=== PATIENT | female | born 1985 | race Caucasian/White ===

== ENCOUNTER 2018-03-18 20:46 | Emergency (ER) | payer SELFPAY ==
[2018-03-18] MEDS ORDERED: DEXAMETHASONE SOD PHOSPHATE 10MG/ML VIAL PO ONE (21:00)
[2018-03-18] MEDS ORDERED: AMOXICILLIN 500MG CAPSULE PO ONE (21:00)
[2018-03-18] MEDS ORDERED: ONDANSETRON 4 MG ODT TABLET SL ONE (21:02)
--- NOTE | 2018-03-18 21:05 | Emergency Department Record ---
History of Present Illness - General Chief Complaint: Headache Migraine Stated Complaint: HEADACHE SINUS CONGESTION,BODY ACHES Time Seen by Provider: 03/18/18 20:48 Source: Patient Mode of Arrival: Ambulatory Limitations: No limitations - History of Present Illness Initial Comments: 32 yo male presents with about three weeks of congestion of the sinuses, green drainage, sore throat and some intermittent fevers. No neck pain. No vomiting or diarrhea but she has had some nausea. MD Complaint: Headache, Other (sinus pressure and drainage) -: Week(s) (3) Onset Description: Gradual Location: Frontal Severity: Moderate Quality: Aching Consistency: Constant Improves With: Other Worsens With: None Context: Recent URI Associated Symptoms: Fever Other Symptoms: Cough Treatments Prior to Arrival: Acetaminophen - Related Data Previous Rx's Medication Instructions Recorded Amoxicillin 500Mg Capsule [Amoxil] 500 mg PO TID #30 tab 03/18/18 Ondansetron [Zofran Odt] 4 mg PO NOW #15 tab.rapdis 03/18/18 Allergies Allergy/AdvReac Type Severity Reaction Status Date / Time No Known Drug Allergies Allergy Verified 07/20/15 14:12 Review of Systems Constitutional: Reports: Chills, Fever, Malaise Eyes: Denies: Eye discharge, Eye pain, Photophobia, Vision change ENT: Reports: Congestion, Ear pain, Throat pain Respiratory: Reports: Cough Cardiovascular: Denies: Chest pain, Palpitations, Syncope Endocrine: Denies: Fatigue Gastrointestinal: Reports: Nausea. Denies: Abdominal pain, Diarrhea, Vomiting Genitourinary: Denies: Abnormal menses, Dysuria Musculoskeletal: Denies: Arthralgia, Joint swelling, Myalgia Skin: Denies: Bruising, Change in color, Rash Neurological: Reports: Headache. Denies: Abnormal gait, Confusion, Numbness, Paresthesias, Seizure, Tingling, Tremors, Vertigo, Weakness Psychiatric: Denies: Anxiety Hematological/Lymphatic: Denies: Blood Clots, Easy bleeding, Easy bruising, Swollen glands Past Medical History - SOCIAL HISTORY Smoking Status: Never smoker Drug Use: None - RESPIRATORY Hx Respiratory Disorders: No - CARDIOVASCULAR Hx Cardio Disorders: No - NEURO Hx Neuro Disorders: No - GI Hx GI Disorders: No - Hx Genitourinary Disorders: No - ENDOCRINE Hx Endocrine Disorders: No - MUSCULOSKELETAL Hx Musculoskeletal Disorders: No - PSYCH Hx Psych Problems: No - HEMATOLOGY/ONCOLOGY Hx Hematology/Oncology Disorders: No Family Medical History Hx Diabetes: Grandparents Physical Exam - General General Appearance: Alert, Oriented x3, Cooperative, No acute distress, Other ( Well appearing, no acute distress, non ill appearing.) Limitations: No limitations - Head Head exam: Atraumatic, Normal inspection - Eye Eye exam: Normal appearance, PERRL. negative: Conjunctival injection, Scleral icterus - ENT ENT exam: Normal exam, Mucous membranes moist, TM's normal bilaterally. negative: Mucous membranes dry, Normal orophraynx Ear exam: Normal external inspection Nasal Exam: Discharge (clear). negative: Dried blood Mouth exam: Normal external inspection Teeth exam: Normal inspection Throat exam: Tonsillar erythema. negative: Tonsillomegaly, Tonsillar exudate, R peritonsillar mass, L peritonsillar mass - Neck Neck exam: Normal inspection, Full ROM, Other (supple full ROM of the neck). negative: Lymphadenopathy, Meningismus, Tenderness - Respiratory Respiratory exam: Normal lung sounds bilaterally. negative: Respiratory distress, Rhonchi, Stridor, Wheezes - Cardiovascular Cardiovascular Exam: Regular rate, Normal rhythm, Normal heart sounds - GI/Abdominal GI/Abdominal exam: Soft. negative: Tenderness - Rectal Rectal exam: Deferred - exam: Deferred - Extremities Extremities exam: Normal inspection - Back Back exam: Denies: CVA tenderness (R), CVA tenderness (L) - Neurological Neurological exam: Alert, Oriented X3 - Psychiatric Psychiatric exam: Normal affect, Normal mood. negative: Agitated, Anxious - Skin Skin exam: Dry, Intact, Normal color, Warm Course Vital Signs 03/18/18 20:55 Temperature 100.2 F H Pulse Rate [ 107 H Pulse Ox Probe] Respiratory 20 Rate Blood Pressure 127/81 [Left Arm] Pulse Ox 100 Disposition Disposition: Discharge Clinical Impression: Sinusitis Disposition: Home, Self-Care Condition: (1) Good Instructions: Sinusitis (ED) Additional Instructions: Rest and stay well hydrated Return if worse, vomiting, concerns of dehydration Take the prescriptions as directed Prescriptions: Amoxicillin 500Mg Capsule [Amoxil] 500 mg PO TID #30 tab Ondansetron [Zofran Odt] 4 mg PO NOW #15 tab.rapdis Forms: Patient Portal Access Time of Disposition: 21:04 Quality - Quality Measures Quality Measures: N/A - Blood Pressure Screening Does Patient Have Any of the Following: No Blood Pressure Classification: Pre-Hypertensive BP Reading Systolic Measurement: 127 Diastolic Measurement: 81 Screening for High Blood Pressure: < Pre-Hypertensive BP, F/U Documented > [ G8950] Pre-Hypertensive Follow-up Interventions: Referral to alternative/primary care provider.
== END 2018-03-18 21:18 | disposition home or self-care (01) ==
LOC: ER 20:46
DX: J01.90 Acute sinusitis, unspecified (principal); R51 Headache; J02.9 Acute pharyngitis, unspecified
CPT/HCPCS: 99282

== ENCOUNTER 2018-06-19 20:52 | Emergency (ER) | payer SELFPAY ==
--- NOTE | 2018-06-19 21:01 | Emergency Department Record ---
History of Present Illness - General Chief Complaint: General Stated Complaint: TIRED,YELLOWING OF WHITE OF EYES Time Seen by Provider: 06/19/18 20:56 Source: Patient Mode of Arrival: Ambulatory Limitations: No limitations - History of Present Illness Initial comments: 32 yo female presents to ED for evaluation of fatigue, was told by an ex- girlfriend that her "eyes appeared yellow". Patient denies health problems at her baseline, other than feeling tired, fells "just fine". Patient denies fever , sore throat, or recent illness. Patient denies alcohol use. -: Hour(s) Consistency: Constant Improves with: None Worsens with: None Associated Symptoms: Denies other symptoms Treatments Prior to Arrival: None - [place] Coma Scale Eye Response: (4) Open spontaneously Motor Response: (6) Obeys commands Verbal Response: (5) Oriented Miles Total: 15 - Related Data Previous Rx's Medication Instructions Recorded Amoxicillin 500Mg Capsule [Amoxil] 500 mg PO TID #30 tab 03/18/18 Ondansetron [Zofran Odt] 4 mg PO NOW #15 tab.rapdis 03/18/18 Allergies Allergy/AdvReac Type Severity Reaction Status Date / Time No Known Drug Allergies Allergy Verified 07/20/15 14:12 Review of Systems Constitutional: Denies: Chills, Fever, Malaise, Night sweats Eyes: Denies: Eye discharge, Eye pain ENT: Denies: Congestion, Ear pain, Epistaxis Respiratory: Denies: Cough, Dyspnea Cardiovascular: Denies: Chest pain, Dyspnea on exertion Endocrine: Reports: Fatigue. Denies: Heat or cold intolerance Gastrointestinal: Denies: Abdominal pain, Nausea, Vomiting Genitourinary: Denies: Incontinence, Retention Musculoskeletal: Denies: Arthralgia, Back pain Skin: Denies: Bruising, Change in color, Rash Neurological: Denies: Abnormal gait, Confusion, Headache, Seizure Psychiatric: Denies: Anxiety Hematological/Lymphatic: Denies: Anemia, Blood Clots Past Medical History - SOCIAL HISTORY Smoking Status: Never smoker Drug Use: None - RESPIRATORY Hx Respiratory Disorders: No - CARDIOVASCULAR Hx Cardio Disorders: No - NEURO Hx Neuro Disorders: No - GI Hx GI Disorders: No - Hx Genitourinary Disorders: No - ENDOCRINE Hx Endocrine Disorders: No - MUSCULOSKELETAL Hx Musculoskeletal Disorders: No - PSYCH Hx Psych Problems: No - HEMATOLOGY/ONCOLOGY Hx Hematology/Oncology Disorders: No Family Medical History Hx Diabetes: Grandparents Physical Exam - General General Appearance: Alert, Oriented x3, Cooperative, No acute distress Limitations: No limitations - Head Head exam: Atraumatic, Normocephalic, Normal inspection Head exam detail: negative: Abrasion, Contusion, Salmeron's sign, General tenderness, Hematoma, Laceration - Eye Eye exam: Normal appearance. negative: Conjunctival injection, Periorbital swelling, Periorbital tenderness, Scleral icterus - ENT Ear exam: negative: Auricular hematoma, Auricular trauma Nasal Exam: negative: Active bleeding, Discharge, Dried blood, Foreign body Mouth exam: negative: Drooling, Laceration, Muffled voice, Tongue elevation - Neck Neck exam: Normal inspection. negative: Meningismus, Tenderness - Respiratory Respiratory exam: Normal lung sounds bilaterally. negative: Rales, Respiratory distress, Rhonchi, Stridor - Cardiovascular Cardiovascular Exam: Regular rate, Normal rhythm, Normal heart sounds - GI/Abdominal GI/Abdominal exam: Soft. negative: Rebound, Rigid, Tenderness - Rectal Rectal exam: Deferred - exam: Deferred - Extremities Extremities exam: Normal inspection. negative: Calf tenderness, Pedal edema, Tenderness - Back Back exam: Denies: CVA tenderness (R), CVA tenderness (L) - Neurological Neurological exam: Alert, Normal gait, Oriented X3 - Psychiatric Psychiatric exam: Normal affect, Normal mood - Skin Skin exam: Normal color. negative: Abrasion Type of lesion: negative: abrasion Course Vital Signs 06/19/18 20:57 Temperature 98.5 F Pulse Rate [ 75 Pulse Ox Probe] Respiratory 20 Rate Blood Pressure 118/77 [Left Arm] Pulse Ox 100 - Reevaluation(s) Reevaluation #1: 06/19/18 21:04 Offered to perform CMP for the patient to review her biliary labs, patient declined stating that she "just want to go home to bed". Patient does not have any evidence for scleral icterus or jaundice on examination. Patient has a normal physical examination. Disposition Disposition: Discharge Clinical Impression: General medical examination Disposition: Home, Self-Care Condition: (2) Stable Instructions: Normal Exam (ED) Additional Instructions: Return to ED if your symptoms worsen or if you have any concerns. Follow-up with your family doctor in 1 week as directed. Forms: Patient Portal Access Time of Disposition: 21:01 Quality - Quality Measures Quality Measures: N/A - Blood Pressure Screening Does Patient Have Any of the Following: No Blood Pressure Classification: Normal BP Reading Systolic Measurement: 118 Diastolic Measurement: 77 Screening for High Blood Pressure: < Normal BP, F/U Not Required > [G8783]
== END 2018-06-19 21:10 | disposition home or self-care (01) ==
LOC: ER 20:52
DX: R53.83 Other fatigue (principal); Z00.00 Encounter for general adult medical examination without abnormal findings
CPT/HCPCS: 99282

== ENCOUNTER 2019-02-17 11:17 | Emergency (ER) | payer MEDICAID ==
--- NOTE | 2019-02-17 11:42 | Emergency Department Record ---
History of Present Illness - General Chief complaint: Pain Stated complaint: BAD ACID REFLUX Time Seen by Provider: 02/17/19 11:28 Source: Patient Mode of Arrival: Ambulatory Limitations: No limitations - History of Present Illness Initial comments: The patient is here due to a 4-5 day hx of worsening upper AP and reflux symptoms. She states she has a LONG hx of GERD and now for the last 5 days has had burning in the upper abdomen with intermittent vomiting. She may have vomited up a small amount of blood 2 days ago but nothing since. There has been no fever, chills, lower AP or back pain. The patient also denies any black or bloody stools. She has had no abdominal surgeries. MD Complaint: Abdominal Pain, Other Onset/Timin -: Days(s) History of Same: Yes Quality: Burning Improves with: Nothing Worsens with: Nothing Associated Symptoms: Denies other symptoms - Related Data Previous Rx's Medication Instructions Recorded Omeprazole 40 mg PO DAILY #14 cap.dr 02/17/19 Sucralfate [Carafate] 1 gm PO QID #28 tablet 02/17/19 Allergies Allergy/AdvReac Type Severity Reaction Status Date / Time No Known Drug Allergies Allergy Verified 02/17/19 11:28 Travel Screening - Travel/Exposure Within Last 30 Days Have you traveled within the last 30 days?: No Review of Systems Constitutional: Denies: Chills, Fever Eyes: Denies: Eye discharge ENT: Denies: Congestion Respiratory: Denies: Cough, Dyspnea Past Medical History - SOCIAL HISTORY Smoking Status: Never smoker Alcohol Use: None Drug Use: None - RESPIRATORY Hx Respiratory Disorders: No - CARDIOVASCULAR Hx Cardio Disorders: No - NEURO Hx Neuro Disorders: No - GI Hx GI Disorders: Yes Hx Reflux: Yes - Hx Genitourinary Disorders: No - ENDOCRINE Hx Endocrine Disorders: No - MUSCULOSKELETAL Hx Musculoskeletal Disorders: No - PSYCH Hx Psych Problems: No - HEMATOLOGY/ONCOLOGY Hx Hematology/Oncology Disorders: No Family Medical History Any Significant Family History?: Yes Hx Diabetes: Grandparents Physical Exam - General General Appearance: Alert, Oriented x3, Cooperative, No acute distress (The patient is very calm and cooperative and nontoxic.) - Head Head exam: Atraumatic, Normocephalic, Normal inspection - Eye Eye exam: Normal appearance, PERRL - ENT Throat exam: Normal inspection. negative: Tonsillar erythema, Tonsillar exudate - Neck Neck exam: Normal inspection, Full ROM. negative: Tenderness - Respiratory Respiratory exam: Normal lung sounds bilaterally. negative: Respiratory distr ess - Cardiovascular Cardiovascular Exam: Regular rate, Normal rhythm, Normal heart sounds - GI/Abdominal GI/Abdominal exam: Soft, Normal bowel sounds, Tenderness (There is significant epigastric tenderness and mild RUQ tenderness.). negative: Distended, Guarding, Rebound, Rigid - Rectal Rectal exam: Deferred (per the patient.) - Extremities Extremities exam: Normal inspection, Full ROM, Normal capillary refill. negative: Tenderness - Neurological Neurological exam: Alert, Normal gait. negative: Abnormal gait, Motor sensory deficit - Psychiatric Psychiatric exam: negative: Anxious Course Vital Signs 02/17/19 11:28 Temperature 98.8 F Pulse Rate 81 Respiratory 18 Rate Blood Pressure 119/80 Pulse Ox 100 - Reevaluation(s) Reevaluation #1: The patient is doing a lot better at this time. Her upper abdominal pain has pretty much resolved at this time and she no longer has any discomfort or nausea. I did discuss the normal lab tests and US and the need for a GI appointment. We will contact the Specialty clinic for an appointment. 02/17/19 13:12 Reevaluation #2: We were able to get the patient an appointment this week with GI. She is to eat a very bland diet and take the prescribed medicines and keep her appointment as directed. She is doing very well at this time with no abdominal pain or tenderness. 02/17/19 13:19 Medical Decision Making - Data Complexity MDM Data: Labs Ordered and/or Reviewed, X-Ray Ordered and/or Reviewed, EKG Orde red and/or Reviewed - Lab Data Result diagrams: 02/17/19 11:45 02/17/19 11:45 - EKG Data -: EKG Interpreted by Me EKG: No Acute Changes, Normal EKG - Radiology Data Radiology results: Report reviewed (US: Neg for any acute disease pattern.) Disposition Disposition: Discharge Clinical Impression: Gastritis Qualifiers: Gastritis type: unspecified gastritis Chronicity: acute Gastritis bleeding: without bleeding Qualified Code(s): K29.00 - Acute gastritis without bleeding Disposition: Home, Self-Care Condition: (2) Stable Instructions: Gastritis (ED) Additional Instructions: Please take the medicines as directed and keep the appointment with the GI doctor as directed. Eat a very bland diet with no fatty or fried foods and stay away from any NSAID meds. Return to the ER for any worsening symptoms, pain, fever, or vomiting. Prescriptions: Sucralfate [Carafate] 1 gm PO QID #28 tablet Omeprazole 40 mg PO DAILY #14 cap Referrals: [facility] [Provider Group] Forms: Patient Portal Access Time of Disposition: 13:22 Quality - Quality Measures Quality Measures: N/A - Blood Pressure Screening View Details: Yes Does Patient Have Any of the Following: No Blood Pressure Classification: Pre-Hypertensive BP Reading Systolic Measurement: 119 Diastolic Measurement: 80 Screening for High Blood Pressure: < Pre-Hypertensive BP, F/U Documented > [G8950] Pre-Hypertensive Follow-up Interventions: Referral to alternative/primary care provider.
[2019-02-17 11:51] LABS: ABSOLUTE NEUTROPHIL COUNT 3.27; BASO % 0.4 % (0-6); EOS % 1.8 % (0-6); GRAN % 57.9 % (47-80); HEMATOCRIT 40.1 % (35.0-47.0); HEMOGLOBIN 13.6 gm/dl (11.6-16.0); LYMPH % 30.3 % (16-45); MEAN CELL VOLUME 90.3 fl (81-97); MEAN CORPUSCULAR HEMOGLOBIN 30.6 pg (27-33); MEAN CORPUSCULAR HGB CONC 33.9 g/dl (32-36); MEAN PLATELET VOLUME 9.5 fl (7.4-10.4); MONO % 9.6 % (0-9); PLATELET COUNT 245 K/uL (130-400); RED BLOOD COUNT 4.44 M/uL (3.80-5.40); RED CELL DISTRIBUTION WIDTH 12.5 % (11.5-14.5); WHITE BLOOD COUNT W/O DIFF 5.6 K/uL (4.2-12.2)
[2019-02-17] MEDS: FAMOTIDINE IV 20 MG/2 ML VIAL IVP ONE (11:52)
[2019-02-17] MEDS: MAGNESIUM HYDROXIDE/AL HYDROX 30 ML, LIDOCAINE VISC 2% 15ML 15 ML PO ONE ×2 (11:52)
[2019-02-17] MEDS: 0.9 % SODIUM CHLORIDE 1,000 ML BAG IV ONE (11:52)
[2019-02-17] MEDS: ONDANSETRON HCL IV 4 MG/2 ML VIAL IV ONE (11:52)
[2019-02-17 11:57] LABS: URINE APPEARANCE SL CLOUDY; URINE BILIRUBIN NEGATIVE (NEGATIVE); URINE BLOOD NEGATIVE (NEGATIVE); URINE COLOR YELLOW; URINE GLUCOSE (UA) NEGATIVE (NEGATIVE); URINE KETONE NEGATIVE (NEGATIVE); URINE LEUKOCYTE ESTERASE MODERATE (NEGATIVE); URINE NITRITE NEGATIVE (NEGATIVE); URINE PROTEIN NEGATIVE (NEGATIVE); URINE UROBILINOGEN 0.2 E.U./dL (0.20 - 1.00)
[2019-02-17 12:02] LABS: BLOOD UREA NITROGEN 9 mg/dL (6-20)
[2019-02-17 12:03] LABS: CREATININE 0.8 mg/dL (0.5-0.9); EST GLOMERULAR FILTRATION RATE > 60 mL/min; LIPASE 26 U/L (13-60); TOTAL PROTEIN 6.7 g/dL (6.6-8.7)
[2019-02-17 12:05] LABS: GLUCOSE,RANDOM 98 mg/dL (74-109)
[2019-02-17 12:06] LABS: URINE BACTERIA 1+; URINE EPITHELIAL CELLS 16 - 20 (FEW); URINE RBC NONE SEEN (NONE SEEN); URINE WBC 36 - 50 (0-2/hpf); URINE YEAST MODERATE
[2019-02-17 12:08] LABS: ALBUMIN 4.2 g/dL (4.0-5.0); ALKALINE PHOSPHATASE 68 U/L (35-104); ALT/SGPT 11 U/L (<33); AST/SGOT 14 U/L (10.0-35.0)
[2019-02-17 12:09] LABS: BILIRUBIN,DIRECT < 0.2 mg/dL (0-0.3)
[2019-02-17] MEDS: SUCRALFATE 1 G/10 ML UD PO ONE (12:40)
--- NOTE | 2019-02-18 07:42 | ULTRASOUND REPORT ---
EXAM: ULTRASOUND OF THE ABDOMEN, LIMITED HISTORY: EPIGASTRIC PAIN. RIGHT UPPER QUADRANT PAIN. EVALUATE FOR CHOLECYSTITIS. TECHNIQUE: Routine ultrasound examination of the right upper abdomen was performed. Comparison: None. FINDINGS: The pancreatic head and tail are not optimally visualized due to overlying bowel gas. No definite focal abnormality of the visualized pancreas. The intrahepatic IVC is patent. The liver is homogeneous in echotexture. No hepatic mass. No intra nor extrahepatic biliary ductal dilatation with the common hepatic duct measuring 4 mm in diameter. The gallbladder is normal in appearance and there is a negative sonographic Zazueta's sign. Screening evaluation of the right kidney does not demonstrate hydronephrosis nor mass. It measures 10.1 cm in length. IMPRESSION: NO ABNORMALITY IDENTIFIED THOUGH EVALUATION OF THE PANCREATIC HEAD AND TAIL IS LIMITED DUE TO OVERLYING BOWEL GAS. JOB NUMBER: [id number] [facility]
== END 2019-02-17 13:38 | disposition home or self-care (01) ==
LOC: ER 11:17
DX: K29.00 Acute gastritis without bleeding (principal); R10.13 Epigastric pain; R10.11 Right upper quadrant pain; R11.10 Vomiting, unspecified
CPT/HCPCS: 76705; 80048; 80076; 81001; 83690; 84703; 85025; 93005; 93010; 96361; 96374; 96375; 99284; J2405; J3490; J7030

== ENCOUNTER 2019-06-07 11:11 | Emergency (ER) | payer MEDICAID ==
--- NOTE | 2019-06-07 11:33 | Emergency Department Record ---
History of Present Illness - General Chief complaint: Cold Stated complaint: VERY BAD COLD Time Seen by Provider: 06/07/19 11:23 Source: Patient, RN notes reviewed Mode of Arrival: Ambulatory - History of Present Illness Initial comments: cough and fever and diarrhea. this started 7 days ago with body aches and diarrhea started 2 days ago and she has body aches. Onset/Timin -: Days(s) Severity: Moderate Severity scale (1-10): 7 Quality: Aching Consistency: Constant - Related Data Previous Rx's Medication Instructions Recorded Albuterol Sulfate [Proair Hfa] 1 - 2 puff IH .EVERY 4-6 HOURS PRN 06/07/19 #1 inhaler Prednisone [Prednisone 20Mg] 20 mg PO BID #10 tab 06/07/19 Allergies Allergy/AdvReac Type Severity Reaction Status Date / Time No Known Drug Allergies Allergy Verified 06/07/19 11:20 Travel Screening - Travel/Exposure Within Last 30 Days Have you traveled within the last 30 days?: No - Travel/Exposure Within Last Year Have you traveled outside the [place] in the last year?: No - Additonal Travel Details Have you been exposed to anyone with a communicable illness?: No - Travel Symptoms Symptom Screening: None Review of Systems Reviewed: No additional complaints except as noted below Constitutional: Reports: As per HPI. Denies: Chills, Fever, Malaise, Night sweats, Weakness, Weight change Eyes: Reports: As per HPI. Denies: Eye discharge, Eye pain, Photophobia, Vision change ENT: Reports: As per HPI, Congestion. Denies: Dental pain, Ear pain, Epistaxis, Hearing loss, Throat pain Respiratory: Reports: As per HPI, Cough, Wheezes. Denies: Dyspnea, Hemoptysis, Stridor Cardiovascular: Reports: As per HPI. Denies: Arrhythmia, Chest pain, Dyspnea on exertion, Edema, Murmurs, Orthopnea, Palpitations, Paroxysmal nocturnal dyspnea, Rheumatic Fever, Syncope Endocrine: Reports: As per HPI. Denies: Fatigue, Heat or cold intolerance, Tanner ydipsia, Polyuria Gastrointestinal: Reports: As per HPI. Denies: Abdominal pain, Constipation, Diarrhea, Hematemesis, Hematochezia, Melena, Nausea, Vomiting Genitourinary: Reports: As per HPI. Denies: Abnormal menses, Discharge, Dyspareunia, Dysuria, Frequency, Hematuria, Incontinence, Retention, Urgency Musculoskeletal: Reports: As per HPI. Denies: Arthralgia, Back pain, Gout, Joint swelling, Myalgia, Neck pain Skin: Reports: As per HPI. Denies: Bruising, Change in color, Change in hair/nails, Lesions, Pruritus, Rash Neurological: Reports: As per HPI. Denies: Abnormal gait, Confusion, Headache, Numbness, Paresthesias, Seizure, Tingling, Tremors, Vertigo, Weakness Psychiatric: Reports: As per HPI. Denies: Anxiety, Auditory hallucinations, Depression, Homicidal thoughts, Suicidal thoughts, Visual hallucinations Hematological/Lymphatic: Reports: As per HPI. Denies: Anemia, Blood Clots, Easy bleeding, Easy bruising, Swollen glands Past Medical History - SOCIAL HISTORY Smoking Status: Never smoker Alcohol Use: Occasional Drug Use: Occasional Drug Use Detail:: Marijuana - RESPIRATORY Hx Respiratory Disorders: No - CARDIOVASCULAR Hx Cardio Disorders: No - NEURO Hx Neuro Disorders: No - GI Hx GI Disorders: Yes Hx Reflux: Yes - Hx Genitourinary Disorders: No - ENDOCRINE Hx Endocrine Disorders: No - MUSCULOSKELETAL Hx Musculoskeletal Disorders: No - PSYCH Hx Psych Problems: No - HEMATOLOGY/ONCOLOGY Hx Hematology/Oncology Disorders: No Family Medical History Any Significant Family History?: Yes Hx Diabetes: Grandparents Physical Exam - General General Appearance: Alert, Oriented x3, Cooperative, No acute distress - Head Head exam: Normal inspection - Eye Eye exam: Normal appearance, PERRL Pupils: Normal accommodation - ENT ENT exam: Normal exam, Mucous membranes moist, Normal external ear exam, Normal orophraynx, TM's normal bilaterally Ear exam: Normal external inspection. negative: External canal tenderness Nasal Exam: Normal inspection. negative: Discharge, Sinus tenderness Mouth exam: Normal external inspection, Tongue normal Teeth exam: Normal inspection. negative: Dental caries Throat exam: Normal inspection. negative: Tonsillar erythema, Tonsillar exudate - Neck Neck exam: Normal inspection, Full ROM. negative: Tenderness - Respiratory Respiratory exam: Wheezes. negative: Respiratory distress - Cardiovascular Cardiovascular Exam: Regular rate, Normal rhythm, Normal heart sounds - GI/Abdominal GI/Abdominal exam: Soft, Normal bowel sounds. negative: Tenderness - Rectal Rectal exam: Deferred - exam: Deferred - Extremities Extremities exam: Normal inspection, Full ROM, Normal capillary refill. negative: Tenderness - Back Back exam: Reports: Normal inspection, Full ROM. Denies: Muscle spasm, Rash noted, Tenderness - Neurological Neurological exam: Alert, Normal gait, Oriented X3, Reflexes normal - Psychiatric Psychiatric exam: Normal affect, Normal mood - Skin Skin exam: Dry, Intact, Normal color, Warm Course Vital Signs 06/07/19 11:13 Temperature 98.4 F Pulse Rate 82 Respiratory 20 Rate Blood Pressure 107/76 Pulse Ox 98 - Reevaluation(s) Reevaluation #1: 06/07/19 12:47 feeling better Medical Decision Making - Data Complexity MDM Data: Labs Ordered and/or Reviewed (influenza b positive) - Lab Data Result diagrams: 06/07/19 11:43 Disposition Clinical Impression: Influenza B, Bronchitis Disposition: Home, Self-Care Condition: (1) Good Instructions: Influenza (ED) Additional Instructions: follow up with family Dr in 7 days use inhaler 2 puffs every 4 hours prednisone twice a day fluids robitussin DM tw teaspoons every 4 hours Prescriptions: Prednisone [Prednisone 20Mg] 20 mg PO BID #10 tab Albuterol Sulfate [Proair Hfa] 1 - 2 puff IH .EVERY 4-6 HOURS PRN #1 inhaler PRN Reason: Difficulty In Breathing Forms: Patient Portal Access Time of Disposition: 12:46 Quality - Quality Measures Quality Measures: N/A - Blood Pressure Screening Does Patient Have Any of the Following: No Blood Pressure Classification: Normal BP Reading Systolic Measurement: 107 Diastolic Measurement: 76 Screening for High Blood Pressure: < Normal BP, F/U Not Required > [G8783]
[2019-06-07] MEDS ORDERED: 0.9 % SODIUM CHLORIDE 1,000 ML BAG IV ONE (11:34)
[2019-06-07] MEDS ORDERED: METHYLPREDNISOLONE PF 125MG/VIAL IVP ONE (11:34)
[2019-06-07] MEDS ORDERED: IPRATROPIUM/ALBUTEROL (0.5MG/3MG) NEB INH ONE (11:35)
[2019-06-07 11:49] LABS: INFLUENZA A NEGATIVE (NEGATIVE); INFLUENZA B POSITIVE (NEGATIVE)
[2019-06-07 11:50] LABS: ABSOLUTE NEUTROPHIL COUNT 1.82; HEMATOCRIT 39.1 % (35.0-47.0); HEMOGLOBIN 13.1 gm/dl (11.6-16.0); MEAN CELL VOLUME 89.3 fl (81-97); MEAN CORPUSCULAR HEMOGLOBIN 29.9 pg (27-33); MEAN CORPUSCULAR HGB CONC 33.5 g/dl (32-36); MEAN PLATELET VOLUME 9.2 fl (7.4-10.4); PLATELET COUNT 211 K/uL (130-400); RED BLOOD COUNT 4.38 M/uL (3.80-5.40); RED CELL DISTRIBUTION WIDTH 12.5 % (11.5-14.5); WHITE BLOOD COUNT W/O DIFF 3.5 K/uL (4.2-12.2)
[2019-06-07 12:11] LABS: PLATELET ESTIMATE NORMAL (NORMAL)
== END 2019-06-07 13:12 | disposition home or self-care (01) ==
LOC: ER 11:11
DX: J10.1 Influenza due to other identified influenza virus with other respiratory manifestations (principal); R19.7 Diarrhea, unspecified
CPT/HCPCS: 85027; 87400; 87880; 94640; 96361; 96374; 99284; J2930; J7030